=== PATIENT | female | born 1985 | race African-American/Black ===

== ENCOUNTER 2021-05-31 12:36 | Outpatient (CLI) | payer OTHER, SELFPAY ==
[2021-05-31 13:25] LABS: Basophils Absolute Auto 0.13 K/mm3 (0.00-0.10); Basophils Percent Auto 1.6 % (0.0-1.0); Eosinophils Absolute Auto 0.16 K/mm3 (0.02-0.50); Hematocrit 32.6 % (35.0-49.0); Immature Granulocyte Absolute 0.02 K/mm3 (0.00-0.00); Immature Granulocyte Percent A 0.2 % (0.0-0.0); Immature Platelet Fraction Pct 0.5 % (1.0-7.0); Lymphocytes Absolute Auto 2.29 K/mm3 (1.10-4.50); Lymphocytes Percent Auto 28.2 % (18.0-42.0); Mean Corpuscular HGB Conc 33.7 g/dL (32.0-36.0); Mean Corpuscular Hemoglobin 28.5 pg (27.0-31.0); Mean Corpuscular Volume 84.5 fL (78.0-102.0); Mean Platelet Volume 8.9 fl (9.2-11.8); Monocytes Absolute Auto 0.72 K/mm3 (0.10-0.90); Monocytes Percent Auto 8.9 % (2.0-11.0); Neutrophils Absolute Auto 4.8 K/mm3 (1.7-7.2); Neutrophils Percent Auto 59.1 % (50.0-70.0); Platelet Count Result 651 K/mm3 (150-420); Red Blood Count 3.86 M/mm3 (4.20-5.40); Red Cell Distribution Width 14.6 % (11.6-14.4); White Blood Count 8.1 K/mm3 (4.8-10.8)
[2021-05-31 13:30] LABS: Anion Gap 7 mmol/L (8-16); Blood Urea Nitrogen 9 mg/dL (7-18); CRP 3.5 mg/dL (0.0-0.9); Calcium 9.1 mg/dL (8.5-10.1); Carbon Dioxide 28 mmol/L (21-32); Chloride 100 mmol/L (98-108); Estimated Glomerular Filt Rate > 60; Glucose 247 mg/dL (70-99); Osmolality Calculated 286 mOsm/kg (285-295); Potassium 3.8 mmol/L (3.5-5.1); Sodium 135 mmol/L (136-145)
== END 2021-05-31 12:37 | disposition home or self-care (01) ==
DX: L02.91 Cutaneous abscess, unspecified (principal)
CPT/HCPCS: 36415; 80048; 85025; 85055; 86140

== ENCOUNTER 2021-06-07 09:38 | Outpatient (CLI) | payer OTHER, SELFPAY ==
[2021-06-07 10:26] LABS: Basophils Absolute Auto 0.08 K/mm3 (0.00-0.10); Eosinophils Absolute Auto 0.32 K/mm3 (0.02-0.50); Hemoglobin 10.6 g/dL (12.0-15.0); Immature Granulocyte Absolute 0.03 K/mm3 (0.00-0.00); Immature Granulocyte Percent A 0.4 % (0.0-0.0); Lymphocytes Percent Auto 39.1 % (18.0-42.0); Mean Corpuscular HGB Conc 32.1 g/dL (32.0-36.0); Mean Corpuscular Hemoglobin 26.4 pg (27.0-31.0); Mean Corpuscular Volume 82.3 fL (78.0-102.0); Mean Platelet Volume 8.9 fl (9.2-11.8); Monocytes Percent Auto 8.8 % (2.0-11.0); Neutrophils Absolute Auto 3.7 K/mm3 (1.7-7.2); Neutrophils Percent Auto 46.7 % (50.0-70.0); Platelet Count Result 464 K/mm3 (150-420); Red Blood Count 4.01 M/mm3 (4.20-5.40); Red Cell Distribution Width 14.2 % (11.6-14.4); White Blood Count 7.9 K/mm3 (4.8-10.8)
[2021-06-07 10:38] LABS: Anion Gap 9 mmol/L (8-16); Blood Urea Nitrogen 9 mg/dL (7-18); CRP 1.9 mg/dL (0.0-0.9); Calcium 8.8 mg/dL (8.5-10.1); Carbon Dioxide 27 mmol/L (21-32); Chloride 106 mmol/L (98-108); Estimated Glomerular Filt Rate > 60; Glucose 129 mg/dL (70-99); Osmolality Calculated 294 mOsm/kg (285-295); Potassium 3.8 mmol/L (3.5-5.1); Sodium 142 mmol/L (136-145)
[2021-06-08 10:20] LABS: Vancomycin Trough 10.6 ug/mL (10.0-15.0)
--- NOTE | 2021-07-03 14:41 | PC.NURSE ---
06/07/21 Labs drawn from Picc line right upper arm. Sent to lab. Dressing change to Picc under sterile technique completed. No s/sx of infection.
== END 2021-06-07 09:39 | disposition home or self-care (01) ==
DX: L02.818 Cutaneous abscess of other sites (principal)
CPT/HCPCS: 36415; 80048; 80202; 85025; 86140

== ENCOUNTER 2021-06-14 13:48 | Outpatient (CLI) | payer OTHER, SELFPAY ==
[2021-06-14 14:46] LABS: Basophils Absolute Auto 0.08 K/mm3 (0.00-0.10); Basophils Percent Auto 0.9 % (0.0-1.0); Eosinophils Absolute Auto 0.12 K/mm3 (0.02-0.50); Eosinophils Percent Auto 1.3 % (1.0-6.0); Hematocrit 35.8 % (35.0-49.0); Hemoglobin 11.1 g/dL (12.0-15.0); Immature Granulocyte Absolute 0.03 K/mm3 (0.00-0.00); Immature Granulocyte Percent A 0.3 % (0.0-0.0); Lymphocytes Absolute Auto 3.28 K/mm3 (1.10-4.50); Lymphocytes Percent Auto 36.4 % (18.0-42.0); Mean Corpuscular Hemoglobin 26.1 pg (27.0-31.0); Mean Platelet Volume 8.8 fl (9.2-11.8); Monocytes Absolute Auto 0.75 K/mm3 (0.10-0.90); Monocytes Percent Auto 8.3 % (2.0-11.0); Neutrophils Absolute Auto 4.8 K/mm3 (1.7-7.2); Neutrophils Percent Auto 52.8 % (50.0-70.0); Platelet Count Result 463 K/mm3 (150-420); Red Blood Count 4.26 M/mm3 (4.20-5.40); Red Cell Distribution Width 14.6 % (11.6-14.4)
[2021-06-14 15:05] LABS: Anion Gap 7 mmol/L (8-16); Blood Urea Nitrogen 10 mg/dL (7-18); CRP 2.1 mg/dL (0.0-0.9); Calcium 9.3 mg/dL (8.5-10.1); Carbon Dioxide 28 mmol/L (21-32); Chloride 106 mmol/L (98-108); Estimated Glomerular Filt Rate > 60; Glucose 106 mg/dL (70-99); Osmolality Calculated 291 mOsm/kg (285-295); Potassium 4.1 mmol/L (3.5-5.1); Sodium 141 mmol/L (136-145)
[2021-06-14 15:10] LABS: Vancomycin Trough 22.6 ug/mL (10.0-15.0)
--- NOTE | 2021-07-03 14:44 | PC.NURSE ---
Patient labs drawn from Picc line right upper arm and sent to lab. Flushed with NS. Picc line right upper arm dressing change completed with supplies brought by patient. Site asystomatic of s/sx of infection.
--- NOTE | 2021-07-03 14:46 | PC.NURSE ---
06/14/21 1400 note before done on 06/14/21.
== END 2021-06-14 13:49 | disposition home or self-care (01) ==
LOC: CHSTREATRM 13:53
DX: L02.818 Cutaneous abscess of other sites (principal)
CPT/HCPCS: 36415; 80048; 80202; 85025; 86140

== ENCOUNTER 2021-06-15 09:45 | Outpatient (CLI) | payer OTHER, SELFPAY ==
[2021-06-15 10:02] LABS: Basophils Absolute Auto 0.07 K/mm3 (0.00-0.10); Basophils Percent Auto 0.9 % (0.0-1.0); Eosinophils Absolute Auto 0.25 K/mm3 (0.02-0.50); Hematocrit 34.3 % (35.0-49.0); Hemoglobin 10.9 g/dL (12.0-15.0); Immature Granulocyte Absolute 0.02 K/mm3 (0.00-0.00); Immature Granulocyte Percent A 0.2 % (0.0-0.0); Lymphocytes Percent Auto 29.2 % (18.0-42.0); Mean Corpuscular HGB Conc 31.8 g/dL (32.0-36.0); Mean Corpuscular Hemoglobin 26.6 pg (27.0-31.0); Mean Corpuscular Volume 83.7 fL (78.0-102.0); Mean Platelet Volume 8.6 fl (9.2-11.8); Monocytes Absolute Auto 0.87 K/mm3 (0.10-0.90); Monocytes Percent Auto 10.6 % (2.0-11.0); Neutrophils Absolute Auto 4.6 K/mm3 (1.7-7.2); Neutrophils Percent Auto 56.1 % (50.0-70.0); Platelet Count Result 458 K/mm3 (150-420); Red Cell Distribution Width 14.6 % (11.6-14.4); White Blood Count 8.2 K/mm3 (4.8-10.8)
[2021-06-15 11:08] LABS: Anion Gap 10 mmol/L (8-16); Blood Urea Nitrogen 9 mg/dL (7-18); Calcium 9.2 mg/dL (8.5-10.1); Carbon Dioxide 27 mmol/L (21-32); Chloride 105 mmol/L (98-108); Estimated Glomerular Filt Rate > 60; Glucose 144 mg/dL (70-99); Osmolality Calculated 295 mOsm/kg (285-295); Potassium 4.4 mmol/L (3.5-5.1); Sodium 142 mmol/L (136-145); Vancomycin Trough 11.7 ug/mL (10.0-15.0)
== END 2021-06-15 09:46 | disposition home or self-care (01) ==
LOC: CHSLAB 09:47
DX: G06.2 Extradural and subdural abscess, unspecified (principal)
CPT/HCPCS: 36415; 80048; 80202; 85025; 86140

== ENCOUNTER 2021-06-21 09:40 | Outpatient (CLI) | payer OTHER, SELFPAY ==
[2021-06-21] MEDS: ALTEPLASE 2 MG VIAL (CATHFLO) IV PUSH (10:28)
--- NOTE | 2021-06-21 10:55 | PC.NURSE ---
Patient here for blood draw from Picc line. Patient receiving daily IV ABX at home, but comes for lab draws from Picc line in right upper arm. Noted very hard to flush and not getting blood return after many attempts. Call to Dr Larry Page to get order for cathflow activase. Phone order received. Alteplase 2 mg IV x1 administered. Waited 30 minutes. Flushed without difficulty and blood return. Tolerated well. Safe exit of hospital. Will return next Saturday. Picc line asystomatic of S/sx of infection.
[2021-06-21 11:21] LABS: Basophils Absolute Auto 0.06 K/mm3 (0.00-0.10); Basophils Percent Auto 0.6 % (0.0-1.0); Eosinophils Absolute Auto 0.07 K/mm3 (0.02-0.50); Eosinophils Percent Auto 0.7 % (1.0-6.0); Hematocrit 34.8 % (35.0-49.0); Hemoglobin 10.8 g/dL (12.0-15.0); Immature Granulocyte Absolute 0.04 K/mm3 (0.00-0.00); Immature Granulocyte Percent A 0.4 % (0.0-0.0); Lymphocytes Absolute Auto 3.29 K/mm3 (1.10-4.50); Lymphocytes Percent Auto 33.3 % (18.0-42.0); Mean Corpuscular Hemoglobin 25.6 pg (27.0-31.0); Mean Corpuscular Volume 82.5 fL (78.0-102.0); Mean Platelet Volume 8.6 fl (9.2-11.8); Monocytes Absolute Auto 0.87 K/mm3 (0.10-0.90); Monocytes Percent Auto 8.8 % (2.0-11.0); Neutrophils Absolute Auto 5.6 K/mm3 (1.7-7.2); Neutrophils Percent Auto 56.2 % (50.0-70.0); Platelet Count Result 481 K/mm3 (150-420); Red Blood Count 4.22 M/mm3 (4.20-5.40); Red Cell Distribution Width 14.8 % (11.6-14.4); White Blood Count 9.9 K/mm3 (4.8-10.8)
[2021-06-21 11:37] LABS: Anion Gap 10 mmol/L (8-16); Blood Urea Nitrogen 10 mg/dL (7-18); CRP 0.7 mg/dL (0.0-0.9); Calcium 8.8 mg/dL (8.5-10.1); Carbon Dioxide 25 mmol/L (21-32); Chloride 104 mmol/L (98-108); Estimated Glomerular Filt Rate > 60; Glucose 74 mg/dL (70-99); Osmolality Calculated 286 mOsm/kg (285-295); Potassium 3.7 mmol/L (3.5-5.1); Sodium 139 mmol/L (136-145)
== END 2021-06-21 09:41 | disposition home or self-care (01) ==
DX: G06.2 Extradural and subdural abscess, unspecified (principal); T82.898A Other specified complication of vascular prosthetic devices, implants and grafts, initial encounter; Z79.2 Long term (current) use of antibiotics
CPT/HCPCS: 36415; 36593; 80048; 85025; 86140; J2997

== ENCOUNTER 2021-06-28 11:15 | Outpatient (CLI) | payer OTHER, SELFPAY ==
--- NOTE | ~2021-06-28 | US_ITS ---
EXAMINATION: US venous doppler UE RT DATE: 06/28/2021 11:42 INDICATION: Right upper limb swelling TECHNIQUE: Grayscale images without and with compression and Doppler images of the right upper extrem ity veins were obtained. COMPARISON: None. FINDINGS: The right internal jugular vein and innominate vein as well as the more distal right radial and ulnar veins are patent. Extensive noncompressible thrombus within the right subclavian vein, axillary vein , brachial veins, basilic vein and cephalic veins. Portions of the peripherally inserted central veno us catheter can be seen in the right basilic and subclavian veins. IMPRESSION: 1. Extensive venous thrombosis in the right upper limb including in the cephalic, basilic, brachial, axillary and subclavian veins. Reviewed, dictated and finalized at location A. IMPRESSION: 1. Extensive venous thrombosis in the right upper limb including in the cephali c, basilic, brachial, axillary and subclavian veins.
--- NOTE | 2021-06-28 11:56 | PC.NURSE ---
Patient here for PICC line removal r/t right arm swollen and just finished ULS of right arm. Order to remove PICC line. PICC line removed measuring approximate 45 cm in length with noted cath intact with noted bevel up. Entire arm swollen from mid bicep down to hand/fingers. Site though asystomatic of s/sx of infection. Tender and sore for patient to remove arm. Pressure dressing applied to site. Tolerated well. Safe exit of hospital.
== END 2021-06-28 11:16 | disposition home or self-care (01) ==
LOC: CHSIMG 11:17
DX: R60.0 Localized edema (principal)
CPT/HCPCS: 93971

== ENCOUNTER 2021-06-28 12:22 | Emergency (ER) | payer OTHER, SELFPAY ==
--- NOTE | ~2021-06-28 | CT_ITS ---
EXAMINATION: CTA chest PE protocol DATE: 06/28/2021 15:44 INDICATION: Right chest pain. TECHNIQUE: Computed tomography angiography (CTA) of the chest was performed with 100 mL Omnipaque-350 intravenous contrast timed to evaluate the pulmonary arteries. Coronal maximum intensity projection 3D-reconstructions were created by the technologist. Automated exposure control and iterative reconst ruction technique were employed. The dose-length product was 1032.32 mGy-cm. COMPARISON: Ultrasound 06/28/2021 FINDINGS: There is minimal atelectasis in right lung lower lobe. No pleural effusion. The heart size is normal. No pericardial effusion. There is no pulmonary embolus. There is fat stranding around righ t subclavian vein. There is mild right axillary lymphadenopathy. For example, a right axillary node m easures 21 x 16 mm. There is moderate thoracic spondylosis. There is mild chronic anterior wedging of T11 and T12 vertebral bodies. IMPRESSION: 1. No pulmonary embolus. 2. Fat stranding around right subclavian vein, consistent with inflammation from the deep vein thromb osis seen by ultrasound. 3. Mild right axillary lymphadenopathy, which may be reactive. Reviewed, dictated and finalized at location A. IMPRESSION: 1. No pulmonary embolus. 2. Fat stranding around right subclavian vein, consistent with inflammation fro m the deep vein thrombosis seen by ultrasound. 3. Mild right axillary lymphadenopathy, which may be reactive.
[2021-06-28 12:35] VITALS: BP 150/95; PULSE 90; RESP 18; TEMP 36.4; O2SAT 98
--- NOTE | 2021-06-28 12:52 | ED.UPPEXIN ---
HPI - Extremity Injury (Upper) General Chief Complaint: Extremity Injury, Upper Stated Complaint: back from us Time Seen by Provider: 06/28/21 12:52 Source: patient History of Present Illness HPI narrative: 36-year-old female with a history of pulmonary embolism 1st diagnosed in 2005 and treated with short-term Lovenox had recurrence of PE in January of last year for which she was started on Lovenox. The patient has been taking Lovenox until 7 days ago when she quit taking the Lovenox secondary to increasing soreness of the anterior abdominal wall. The patient had sacral surgery two months ago which appears to have infection with MRSA for which she was on IV vancomycin through a PICC line in her right arm. The patient had developed increased swelling of the right arm and forearm. The PICC line was pulled out today. She had a venous Doppler of the right extremity which revealed DVT in subclavian, axillary, brachial, cephalic and basilic veins. The patient was asked to come to the ER. The patient also complains of -- right upper chest / shoulder /right arm pain -- no shortness of breath. No history of trauma. Severity: moderate Relieving factors: none Exacerbating factors: none Context: other ( No history of trauma.) Associated symptoms: denies other symptoms Related Data Home Medications Medication Instructions Recorded Confirmed enoxaparin 100 mg SUBCUT DAILY 06/28/21 06/28/21 insulin glargine [Lantus U-100 50 unit SUBCUT QPM 06/28/21 06/28/21 Insulin] Allergies Allergy/AdvReac Type Severity Reaction Status Date / Time metformin AdvReac Diarrhea Verified 06/28/21 12:59 Review of Systems Review of Systems: All systems reviewed & are unremarkable except as noted in HPI and below Constitutional: Constitutional: Reports as per HPI and Reports no additional constitutional complaints Eyes: Eyes: Reports as per HPI and Reports no additional eye complaints ENT: Reports system reviewed and no additional complaints, except as documented Cardiovascular: Cardiovascular: Reports as per HPI Comments: Right upper chest wall pain Respiratory: Respiratory: Reports as per HPI and Reports no additional respiratory complaints Gastrointestinal: Gastrointestinal: Reports as per HPI and Reports no additional gastrointestinal complaints Genitourinary: Genitourinary: Reports no additional female genitourinary complaints Musculoskeletal: Comments: right shoulder /right upper chest and right arm pain Integumentary/Breasts: Skin/Breast: Reports system reviewed and no additional complaints, except as docu and Reports as per HPI Neurologic: Reports system reviewed and no additional complaints, except as documented and Reports as per HPI Psychiatric: Psychiatric: Reports no additional psychiatric complaints and Reports as per HPI Endocrine: Endocrine: Reports no additional endocrine complaints Hematologic/Lymphatic: Hematologic/Lymphatic: Reports no additional hematologic/lymphatic complaints Allergic/Immunologic: Allergic/Immunologic: Reports no additional allergic/immunologic complaints [facility] Surgical History Surgical History (Updated 06/28/21 @ 14:08 by Ady Hoff MD) Previous section Exam Const: General: no acute distress and alert Orientation/consciousness: patient oriented x3 HENMT: Head: normal to inspection and contusion Eyes: Conjunctivae: conjunctivae normal Pupils: Equal, round and reactive pupils present Neck: Neck: normal visual inspection and no lymphadenopathy Chest: Chest palpation & inspection: normal inspection of the chest and abnormal inspection of the chest Resp: Effort & Inspection: normal respiratory effort Auscultation: clear to auscultation bilaterally Cardio: Rate: regular rate Rhythm: regular rhythm GI: GI Palp: Yes Soft to palpation : General: Yes no CVA tenderness Back/Spine/Pelvis: Back: no CVA tenderness Skin: General skin exam: normal c
--- NOTE | 2021-06-28 13:27 | ECG_ITS ---
Measurements Intervals [place] Rate: 84 P: 64 HI: 166 QRS: 32 QRSD: 80 T: 20 QT: 355 QTc: 420 Interpretive Statements SINUS RHYTHM NO PREVIOUS ECG AVAILABLE FOR COMPARISON Electronically Signed On 06-28-2021 20:31:23 CDT by Lorena Dee M.D.
[2021-06-28] MEDS: LACTATED RINGERS 1,000 ML 500 ML IV CONT (14:11)
[2021-06-28] MEDS: HYDROcodone/acetaminophen (*CRX) 5-325 MG TABLET 1 TAB PO (15:01)
[2021-06-28 15:03] LABS: Basophils Percent Auto 0.9 % (0.0-1.0); Eosinophils Absolute Auto 0.44 K/mm3 (0.02-0.50); Eosinophils Percent Auto 4.1 % (1.0-6.0); Hematocrit 37.5 % (35.0-49.0); Hemoglobin 11.7 g/dL (12.0-15.0); Immature Granulocyte Absolute 0.05 K/mm3 (0.00-0.00); Immature Granulocyte Percent A 0.5 % (0.0-0.0); Lymphocytes Absolute Auto 2.87 K/mm3 (1.10-4.50); Lymphocytes Percent Auto 26.6 % (18.0-42.0); Mean Corpuscular HGB Conc 31.2 g/dL (32.0-36.0); Mean Corpuscular Hemoglobin 26.1 pg (27.0-31.0); Mean Corpuscular Volume 83.5 fL (78.0-102.0); Mean Platelet Volume 9.1 fl (9.2-11.8); Monocytes Absolute Auto 0.89 K/mm3 (0.10-0.90); Monocytes Percent Auto 8.2 % (2.0-11.0); Neutrophils Absolute Auto 6.5 K/mm3 (1.7-7.2); Neutrophils Percent Auto 59.7 % (50.0-70.0); Platelet Count Result 404 K/mm3 (150-420); Red Blood Count 4.49 M/mm3 (4.20-5.40); Red Cell Distribution Width 15.2 % (11.6-14.4); White Blood Count 10.8 K/mm3 (4.8-10.8)
[2021-06-28 15:15] VITALS: BP 142/92; PULSE 85; RESP 18; TEMP 36.8; O2SAT 97
[2021-06-28 15:17] LABS: Partial Thromboplastin Time 25.4 SEC (23.90-30.70)
[2021-06-28 15:19] LABS: SPREG INTERNAL CONTROL Positive; Serum Qual hCG Negative
[2021-06-28 15:21] LABS: Alanine Aminotransferase 16 U/L (14-59); Albumin Level 2.9 g/dL (3.4-5.0); Alkaline Phosphatase 60 U/L (46-116); Anion Gap 11 mmol/L (8-16); Aspartate Amino Transferase < 10 U/L (15-37); Bilirubin,Total 0.4 mg/dL (0.00-1.00); Blood Urea Nitrogen 10 mg/dL (7-18); Carbon Dioxide 24 mmol/L (21-32); Chloride 103 mmol/L (98-108); Estimated CRCL calculation 116 ml/min; Estimated Glomerular Filt Rate > 60; Glucose 148 mg/dL (70-99); Osmolality Calculated 288 mOsm/kg (285-295); Sodium 138 mmol/L (136-145); Total Protein 7.6 g/dL (6.4-8.2); Troponin I 5.4 ng/L (0.00-60.4)
[2021-06-28 16:24] VITALS: BP 146/82; PULSE 84; RESP 16; TEMP 36.8; O2SAT 100
--- NOTE | 2021-06-28 16:27 | PC.NURSE ---
pt resting quietl;
--- NOTE | 2021-06-28 16:28 | PC.NURSE ---
pt resting quietly. no change in condition. right radial pulse strong. arom noted to right fingers x5.
[2021-06-30 13:00] LABS: Anti Cardio Antibody IgM <2.0 MPL-U/mL (<20.0); Anti Cardiolipin Antibody IgA <2.0 APL-U/mL (<20.0); Anti Cardiolipin Antibody IgG <2.0 GPL-U/mL (<20.0)
[2021-07-01 03:34] LABS: Antithrombin III Activity 102 % normal (80-135)
[2021-07-01 21:05] LABS: Homocysteine 7.2 umol/L (<10.4)
[2021-07-01 21:24] LABS: Lupus dRVVT 1:1 Mix Interpreta Not Indicated; Lupus dRVVT Screen 37 sec (<=45); PTT-LA Screen 30 sec (<=40)
[2021-07-03 15:36] LABS: Protein C Antigen 106 % (70-140)
== END 2021-06-28 17:10 | disposition home or self-care (01) ==
PROVIDERS: Emergency Provider Internal Medicine Critical Care Medicine
DX: I82.621 Acute embolism and thrombosis of deep veins of right upper extremity (principal)
CPT/HCPCS: 36415; 71275; 80053; 81240; 82232; 83090; 84484; 84703; 85025; 85300; 85302; 85610; 85613; 85730; 86147; 87040; 93005; 96360; 96361; 99284; A9270; J7120; Q9967